=== PATIENT | male | born 1945 | race Caucasian/White ===

== ENCOUNTER → 2018-12-13 15:51 | Outpatient (CLI) | payer OTHER, SELFPAY ==
--- NOTE | 2018-12-13 | DI.MRI.S_ITS ---
PROCEDURE: MR LUMBAR SPINE WO CON INDICATIONS: Other intervertebral disc degeneration, lumbar reg TECHNIQUE: Noncontrast sagittal T1 spin echo and T2 fast echo, sagittal STIR, axial T1 and T2 fast spin echo through the lumbar spine. In cases with scoliosis, additional coronal T2 fast spin echo may be performed. COMPARISON: None. FINDINGS: Image quality: Excellent. Alignment and Curvature: Grade 1 retrolisthesis of L1 on L2 and L3 on L4. Grade 1 anterolisthesis of L5 on S1 Bone Marrow: No acute compression fracture. Multilevel degenerative endplate sclerosis and spurring. Diffuse facet arthropathy. Multiple scattered small Schmorl's nodes are seen. Spinal Cord: Conus medullaris terminates at the L1 level. Visualized cord demonstrates normal signal and size. Paraspinous Soft Tissues: No paravertebral masses. L1-L2: Broad-based posterior disc bulge and bilateral facet arthropathy. Mild central canal narrowing. Partial effacement of both lateral recesses with bilaterally symmetric appearance. Mild bilateral foraminal stenoses. L2-L3: Mild broad-based posterior disc bulge bilateral facet arthropathy. No central canal narrowing. Lateral recesses appear grossly patent. No foraminal stenosis L3-L4: Broad-based posterior disc bulge bilateral facet arthropathy. Dorsal epidural lipomatosis. Mild to moderate central canal narrowing. Partial effacement of both lateral recesses with bilaterally symmetric appearance. Moderate left foraminal stenosis with nerve root compression. Mild right foraminal narrowing L4-L5: Bilateral facet arthropathy. No definite central canal or lateral recess narrowing. Mild bilateral foraminal stenoses L5-S1: Broad-based posterior disc bulge bilateral facet arthropathy. No central canal narrowing. Lateral recesses appear grossly patent. Severe right foraminal stenosis with nerve root compression. Severe left foraminal stenosis with nerve root compression. IMPRESSION: Severe bilateral L5-S1 foraminal stenoses. Moderate left L3-L4 foraminal stenosis. No high-grade canal narrowing. Dictated by: Flako Salmeron M.D. on 12/13/2018 at 16:40 Approved by: Flako Salmeron M.D. on 12/13/2018 at 16:47
== END ==
PROVIDERS: PCP Family Medicine; Visit Provider Family Medicine
DX: M51.36 Other intervertebral disc degeneration, lumbar region (principal); M48.061 Spinal stenosis, lumbar region without neurogenic claudication; M48.07 Spinal stenosis, lumbosacral region
CPT/HCPCS: 72148

== ENCOUNTER 2019-04-20 13:56 | Emergency (ER) | payer OTHER, SELFPAY ==
[2019-04-20 14:13] VITALS: BP 191/96; PULSE 81; RESP 16; TEMP 36.2; O2SAT 99; BMI 26.7
--- NOTE | 2019-04-20 14:53 | ED_ITS ---
HPI - Dizziness General Chief Complaint: Dizziness Stated Complaint: high bp/htn/feels week Time Seen by Provider: 04/20/19 14:22 Source: patient Mode of arrival: Ambulatory Limitations: no limitations History of Present Illness HPI Narrative: Patient is a 74-year-old male with history of hypertension and essential tremor who presents with dizziness. He states that he took primidone for the 1st time last night he almost immediately started to feel a little off. She woke up this morning around 4:00 a.m. he felt lightheaded he has not passed out. He is noted to have elevated blood pressure. He states that he also has anxiety he takes his blood pressure at least 3 to 4 times a day he did take his blood pressure medication today already. He states that he does feel quite anxious. Is he denies any chest pain heart palpitation shortness of breath weakness numbness tingling MD complaint: lightheadedness History of similar episodes: No History of trauma: No Related Data Allergies Allergy/AdvReac Type Severity Reaction Status Date / Time cefprozil Allergy Verified 04/20/19 15:18 clarithromycin Allergy Verified 04/20/19 15:18 Penicillins Allergy Verified 04/20/19 15:18 sulfamethoxazole Allergy Verified 04/20/19 15:18 [From Bactrim] trimethoprim [From Bactrim] Allergy Verified 04/20/19 15:18 Review of Systems Review of Systems ROS Unobtainable: All systems reviewed & are unremarkable except as noted in HPI and below Constitutional Constitutional: Denies chills, Denies fever(s), Denies lethargy and Denies weakn ess Eyes Eyes: Denies change in vision, Denies eye discharge, Denies irritation and Denies loss of vision ENT Ears, Nose, Mouth, and Throat: Denies change in voice, Denies neck pain and Denies sore throat Cardiovascular Cardiovascular: Denies chest pain, Denies irregular heart rhythm, Reports lightheadedness, Denies palpitations, Denies dyspnea, Denies dyspnea on exertion and Denies orthopnea Respiratory Respiratory: Denies cough, Denies dyspnea, Denies dyspnea on exertion and Denies wheezing Gastrointestinal Gastrointestinal: Denies abdominal pain, Denies change in bowel habits, Denies diarrhea, Denies nausea and Denies vomiting Musculoskeletal Musculoskeletal: Denies neck pain Integumentary/Breasts Skin/Breast: Denies pruritus, Denies erythema, Denies rash and Denies wounds Neurologic Neurologic: Denies loss of vision and Denies weakness Endocrine Endocrine: Denies palpitations Allergic/Immunologic Allergic/Immunologic: Denies wheezing Patient History Medical History Essential tremor (Acute) Hypertension (Acute) Social History Smoking Status: Never smoker alcohol intake: current substance use type: marijuana alcohol intake frequency: holidays/special occasions only Alcohol type: wine Substance Use Type: marijuana Exam Initial Vital Signs Initial Vital Signs: Vital Signs Temperature 97.1 F L 04/20/19 14:13 Pulse Rate 81 04/20/19 14:13 Respiratory Rate 16 04/20/19 14:13 Blood Pressure 191/96 H 04/20/19 14:13 Pulse Oximetry 99 04/20/19 14:13 GENERAL: Well-appearing, well-nourished and in no acute distress. HEENT: Head atraumatic,EOMI, pupils reactive, face symmetric, moist mucous membranes CARDIOVASCULAR: Regular rate and rhythm without murmurs, rubs or gallops. RESPIRATORY: Breath sounds equal bilaterally, no wheezes rales or rhonchi. ABDOMEN: Soft, nontender. Normoactive bowel sounds all 4 quadrants. No guarding or rebound. : No CVA tenderness EXTREMITIES: Normal range of motion, no clubbing or edema. Neurovascularly intact NEUROLOGICAL: Alert and oriented x4.Normal gait and speech. Cranial nerves II through XII grossly intact. Investment Executive strength equal bilaterally SKIN: Warm, dry, no laceration, no petechiae, no rashes or lesions. Course Orders Ordered: ED Orders 04/20/19 15:23 Complete Blood Count AUTO DIFF Stat Comprehensive Metabolic Panel Stat Troponin I Stat Discontinued Medications Sodium Chloride (Normal Saline 0.9%) 1,000 mls @ 1,000 mls/hr IV CONT LAINA Last Infusion: 04/20/19 16:30 Dose: 0 mls/hr Documented by: MARIA GUADALUPE Admin: 04/20/19 15:27 Dose: 1,000 mls/hr Documented by: JUANPABLO Lorazepam (Ativan) 1 mg PO NOW ONE Stop: 04/20/19 14:44 Last Admin: 04/20/19 15:44 Dose: 1 mg Documented by: JUANPABLO Vital Signs Vital signs: Vital Signs - 8 hr 04/20/19 14:13 04/20/19 15:58 Temperature 97.1 F L Pulse Rate 81 70 Respiratory Rate 16 Blood Pressure 191/96 H Blood Pressure [Left Arm] 150/80 H Pulse Oximetry 99 99 MDM - Dizziness Lab Data Attestation: I reviewed the patient's lab results. Result diagrams: 04/20/19 15:23 04/20/19 15:23 Labs: Lab Results 04/20/19 04/20/19 Range/Units 15:23 15:23 WBC 5.4 (4.5-11.0) X10^3/uL RBC 4.16 L (4.5-5.9) X10^6/uL Hgb 14.0 (13.5-17.5) g/dL Hct 41.1 (41-53) % MCV 98.8 (80-100) fL MCH 33.7 (26-34) PG MCHC 34.1 (30-36) % RDW 13.1 (11.6-14.8) % Plt Count 172 (150-400) X10^3/uL Neut % (Auto) 68.9 (50-75) % Lymph % (Auto) 16.6 L (25-40) % [place] % (Auto) 11.1 (3-14) % Eos % (Auto) 2.6 (2-4) % Baso % (Auto) 0.8 (0-2) % Neut # (Auto) 3700 (6668-6390) /uL Lymph # (Auto) 900 L (9842-5271) /uL [place] # (Auto) 600 (0-900) /uL Eos # (Auto) 100 (0-450) /uL Baso # (Auto) 0 (0-100) /uL Sodium 137 (137-145) mmol/L Potassium 5.2 H (3.4-5.1) mmol/L Chloride 105 (98-107) mmol/L Carbon Dioxide 23 (22-32) mmol/L BUN 15 (9-20) mg/dL Creatinine 0.70 (0.66-1.25) mg/dL Estimated GFR > 60.0 (>60) mL/min BUN/Creatinine Ratio 21.4 (6-22) Glucose 114 H (80-110) mg/dL Calcium 8.9 (8.4-10.2) mg/dL Total Bilirubin 1.2 (0.2-1.3) mg/dL AST 34 (17-59) IU/L ALT 22 (<50) IU/L Alkaline Phosphatase 46 (38-126) U/L Troponin I < 0.012 (0.01-0.034) ng/mL Total Protein 6.7 (6.3-8.2) g/dL Albumin 4.1 (3.5-5.0) g/dL Globulin 2.6 (1.7-4.1) g/dL Albumin/Globulin Ratio 1.6 (1.0-2.8) Urine Dip Bedside Urine Glucose Negative Bedside Urine Bilirubin - Negative Bedside Urine Ketone - Negative Urine Specific [place] 1.005 Bedside Urine Occult Blood - Negative Bedside Urine pH 6.0 Bedside Urine Protein - Negative Bedside Urine Urobilinogen - Negative Bedside Urine Nitrite - Negative Bedside Urine Leukocytes - Negative Esterase ECG Data Attestation: I personally reviewed and interpreted this ECG as follows: Prior ECG tracings: not available for review Interpretation: Sinus rhythm rate [address] changes no T-wave inversions no priors to compare p.r. interval 144 QRS 85 QTC 411 MDM Narrative Medical decision making narrative: The patient likely had reaction from primidone can cause some vertigo. His blood pressure has come down who with At th[place] and he overall is feeling much better. At this time he can follow up outpatient and may need different medication for central tremors Discharge Plan Departure Patient Disposition: Home Clinical Impression: Adverse drug reaction Qualifiers: Encounter type: initial encounter Qualified Code(s): T50.905A - Adverse effect of unspecified drugs, medicaments and biological substances, initial encounter Hypertension Qualifiers: Hypertension type: essential hypertension Qualified Code(s): I10 - Essential (primary) hypertension Discharge Date/Time: 04/20/19 16:35 Instructions: DI for Adverse Drug Reaction -- Other Activity Restrictions/Additional Instructions: *You have been diagnosed with drug reaction *What to do: Possible drug reaction from primidone. I recommend following up with her PCP in regards to this medication however I would hold off taking it *Continue to take medications as directed *Follow up with your primary care provider in 2-3 days *Return to ER if you should have increasing dizziness lightheadedness worsening tremors persistent elevated blood pressure or any new, worsening or concerning symptoms Referrals: Steven Massey MD [Primary Care Provider] -
[2019-04-20] MEDS: SODIUM CHLORIDE 0.9% 1,000 ML 1000 ML IV (15:27)
[2019-04-20 15:33] LABS: Add Manual Diff / Slide Review NO; Basophils Absolute Auto 0 /uL (0-100); Basophils Percent Auto 0.8 % (0-2); Eosinophils Absolute Auto 100 /uL (0-450); Eosinophils Percent Auto 2.6 % (2-4); Hematocrit 41.1 % (41-53); Lymphocytes Absolute Auto 900 /uL (1100-4500); Lymphocytes Percent Auto 16.6 % (25-40); Mean Corpuscular HGB Conc 34.1 % (30-36); Mean Corpuscular Hemoglobin 33.7 PG (26-34); Mean Corpuscular Volume 98.8 fL (80-100); Monocytes Absolute Auto 600 /uL (0-900); Monocytes Percent Auto 11.1 % (3-14); Neutrophils Absolute Auto 3700 /uL (1500-7000); Neutrophils Percent Auto 68.9 % (50-75); Platelet Count 172 X10^3/uL (150-400); Red Blood Cell Count 4.16 X10^6/uL (4.5-5.9); Red Cell Distribution Width 13.1 % (11.6-14.8); White Blood Cell Count 5.4 X10^3/uL (4.5-11.0)
[2019-04-20] MEDS: LORazepam 0.5 MG TABLET 1 MG PO (15:44)
[2019-04-20 15:45] LABS: Alanine Aminotransferase 22 IU/L (<50); Albumin 4.1 g/dL (3.5-5.0); Albumin Globulin Ratio 1.6 (1.0-2.8); Alkaline Phosphatase 46 U/L (38-126); Aspartate Aminotransferase 34 IU/L (17-59); BUN Creatinine Ratio 21.4 (6-22); Bilirubin Total 1.2 mg/dL (0.2-1.3); Blood Urea Nitrogen 15 mg/dL (9-20); Calcium 8.9 mg/dL (8.4-10.2); Carbon Dioxide 23 mmol/L (22-32); Chloride 105 mmol/L (98-107); Estimated Glomerular Filt Rate > 60.0 mL/min (>60); Globulin 2.6 g/dL (1.7-4.1); Glucose 114 mg/dL (80-110); Sodium 137 mmol/L (137-145); Total Protein 6.7 g/dL (6.3-8.2)
[2019-04-20 15:46] LABS: HEMOLYSIS 133 (0-50)
[2019-04-20 15:47] LABS: Potassium 5.2 mmol/L (3.4-5.1)
[2019-04-20 15:56] LABS: Troponin I < 0.012 ng/mL (0.01-0.034)
[2019-04-20 15:58] VITALS: BP 150/80; PULSE 70; O2SAT 99
== END 2019-04-20 16:35 | disposition home or self-care (01) ==
PROVIDERS: Emergency Provider Emergency Medicine; PCP Family Medicine
DX: I10 Essential (primary) hypertension (principal); T50.905A Adverse effect of unspecified drugs, medicaments and biological substances, initial encounter
CPT/HCPCS: 36415; 80053; 81003; 84484; 85025; 93005; 96360; 99283; 99284

== ENCOUNTER 2019-10-24 10:11 | Emergency (ER) | payer MEDICARE, SELFPAY ==
[2019-10-24] VITALS (7 sets, daily range): BP systolic 138–186; BP diastolic 59–79; PULSE 50–92; RESP 14–20; TEMP 37.1; O2SAT 95–100
[2019-10-24 10:57] LABS: Lactate (Lactic Acid) 0.8 mmol/L (0.7-2.1)
[2019-10-24 10:59] LABS: Alanine Aminotransferase 16 IU/L (<50); Albumin 4.1 g/dL (3.5-5.0); Albumin Globulin Ratio 1.4 (1.0-2.8); Alkaline Phosphatase 64 U/L (38-126); Aspartate Aminotransferase 20 IU/L (17-59); BUN Creatinine Ratio 12.5 (6-22); Bilirubin Total 0.8 mg/dL (0.2-1.3); Blood Urea Nitrogen 12 mg/dL (9-20); Calcium 9.2 mg/dL (8.4-10.2); Carbon Dioxide 24 mmol/L (22-32); Chloride 107 mmol/L (98-107); Estimated Glomerular Filt Rate > 60.0 mL/min (>60); Glucose 145 mg/dL (80-110); HEMOLYSIS < 15 (0-50); Lipase 118 U/L (23-300); Potassium 3.9 mmol/L (3.4-5.1); Sodium 138 mmol/L (137-145); Total Protein 7.1 g/dL (6.3-8.2)
--- NOTE | 2019-10-24 11:41 | ED_ITS ---
HPI - Abdominal Pain <Stephanie Manzo PA-C - Last Filed: 10/24/19 22:33> General Chief Complaint: Abdominal Pain Stated Complaint: upset stomach,chills Time Seen by Provider: 10/24/19 10:54 Mode of arrival: Ambulatory History of Present Illness HPI narrative: This is a well-appearing 74-year-old nonsmoker with a history of hypertension, hyperlipidemia, essential tremor, multiple drug allergies who presents to the emergency department with 3 weeks of intermittent abdominal discomfort, reported intermittent chills and a few episodes of feeling like his hands and feet are tingly and numb--this occurs at least once a day. Shira had an episode a few days ago where he went for a walk and afterwards his legs felt funny on both sides. He has seen his PCP for the same complaints 2 times in the last 3 weeks and presents to the emergency department today because he felt he wants more answers. He reports that his discomfort does not seem to be affected by eating; he has been eating and drinking normally and has had no changes to his diet recently, with the exception that he has been cooking for himself since late fall as he recently got . He has not had increased stressors. He reports that the pain feels a little bit like reflux although he has never had a problem with this previously, he also says that sometimes it feels like there is a lead filled balloon in his belly in the upper right. He was prescribed ome prazole for 2 weeks and took this for a few days with limited relief. He also says that he had a stool sample checked and they found what was ?traveler's diarrhea? and prescribed antibiotics for this however he has allergy to a related medicine and he decided not to take it. He has not had any diarrhea in the last few months, reporting that he has about 3 formed bowel movements per day which is normal for him. He was taking Pepto-Bismol for a few weeks with limited relief. He also has had multiple episodes in the last few weeks where he feels like his homes get sweaty and they feel kind of tingly and this lasts for few minutes. This does not seem to be associated with any specific activ ity. He advises that he did not have any dark stool (except with the pepto bismol) and has not seen any red blood in his stool. He also advises he had a major sinus surgery in mid June and has had follow-up for this. Also advises 2 years ago he had a significant cardiac workup at [place] revealing a possible small vessel occlusion but was not advised he needed to follow-up for this. He takes propranolol for essential tremor, losartan for hypertension, and a statin daily. He also drinks 4-6 glasses of wine per day. He advises he has been tested for COVID-19 and has also had the antibody test done. He denies any current abdominal pain or discomfort, dysuria, constipation, diarrhea, nausea, vomiting, new back pain, palpitations, or any other symptoms. MD complaint: abdominal pain (discomfort) Onset (ago): week(s) (3) Pain Consistency: intermittent and now resolved Location: diffuse and RUQ Severity: mild Severity scale (1-10): 2 Quality: burning Radiation: none Migration to: no migration Relieving factors: nothing Exacerbating factors: nothing Associated symptoms: nausea (occasional) and chills Related Data Previous Rx's Medication Instructions Recorded ciprofloxacin HCl 500 mg PO BID #6 tab NS 10/24/19 Allergies Allergy/AdvReac Type Severity Reaction Status Date / Time cefprozil Allergy Verified 04/20/19 15:18 clarithromycin Allergy Verified 04/20/19 15:18 Penicillins Allergy Verified 04/20/19 15:18 sulfamethoxazole Allergy Verified 04/20/19 15:18 [From Bactrim] trimethoprim [From Bactrim] Allergy Verified 04/20/19 15:18 Review of Systems <Stephanie Manzo PA-C - Last Filed: 10/24/19 22:33> Review of Systems Narrative: See HPI GENERAL: Denies chills, fatigue, malaise, fever, sweats. HEENT: Denies sinus pain, ear pain, sore throat, difficulty swallowing, endorses occasional dizziness. RESPIRATORY: Denies dyspnea, cough, wheezing, hemoptysis, sputum. CARDIOVASCULAR: Denies chest pain, palpitations, orthopnea, edema, GASTROINTESTINAL: Denies nausea, vomiting, endorses abdominal discomfort, denies abdominal pain, diarrhea, constipation, melena, blood in stool. : Denies dysuria, frequency, incontinence, hematuria, urinary retention. MUSCULOSKELETAL: denies weakness except 1 episode of bilateral leg weakness that was brief 2 days ago, denies joint pain, or bony pain SKIN: Denies rash, skin lesions, or other NEUROLOGIC: Denies weakness, headache, change in speech, confusion, seizures, incoordination endorses intermittent numbness and tingling of his hands and feet for the last few weeks that is mild and comes and goes. PSYCHIATRIC: No concerning psychosocial issues. 12 point review of systems is negative except for those stated above Patient History <Stephanie Manzo PA-C - Last Filed: 10/24/19 22:33> Medical History Essential tremor (Acute) Hypertension (Acute) Social History Smoking Status: Never smoker alcohol intake: current substance use type: marijuana Smoking Status: Never smoker alcohol intake frequency: holidays/special occasions only Alcohol type: wine Substance Use Type: marijuana Exam <Stephanie Manzo PA-C - Last Filed: 10/24/19 22:33> Narrative Exam Narrative: GENERAL: 74 year old patient appears stated age. Well-nourished, well-developed patient, in mild distress. HEAD: Atraumatic. Normocephalic. EYES: Pupils equal round and reactive. Extraocular motions intact. No scleral icterus. No injection or drainage. ENT: Nose without bleeding, purulent drainage. Throat without erythema, tonsillar hypertrophy or exudate. Airway patent. NECK: Trachea midline. Non tender CARDIOVASCULAR: Regular rate and rhythm without murmurs, gallops, or rubs. RESPIRATORY: Clear to auscultation. Breath sounds equal bilaterally. No wheezes, rales, or rhonchi. GASTROINTESTINAL: Abdomen soft, non-tender, nondistended. EXTREMITIES: No edema or joint tenderness. BACK: Nontender without deformity or crepitance. No flank tenderness. NEURO: AOx3. Cranial nerves are intact, strength is intact upper and lower extremities 5/5, sensation is intact, coordination is intact. SKIN: No rash or erythema of visible areas Initial Vital Signs Initial Vital Signs: Vital Signs Temperature 98.7 F 10/24/19 10:15 Pulse Rate 59 L 10/24/19 10:15 Respiratory Rate 18 10/24/19 10:15 Blood Pressure 186/59 H 10/24/19 10:15 Pulse Oximetry 100 05/28/20 10:15 <Juan Ramirez MD - Last Filed: 10/25/19 07:53> Initial Vital Signs Initial Vital Signs: Vital Signs Temperature 98.7 F 10/24/19 10:15 Pulse Rate 59 L 10/24/19 10:15 Respiratory Rate 18 10/24/19 10:15 Blood Pressure 186/59 H 10/24/19 10:15 Pulse Oximetry 100 10/24/19 10:15 Course <Stephanie Manzo PA-C - Last Filed: 10/24/19 22:33> Course Course Narrative: Given that he currently has no active abdominal pain, and I cannot reproduce his discomfort or pain on exam I am not inclined to pursue imaging at this time, however I am somewhat concerned about his vague neurologic symptoms though I do not suspect CVA or TIA. He does have a chronic essential tremor and he is a frequent alcohol drinker so I am going to check some additional labs in case he may have deficiency here. The patient is disinclined to take many medicines if he does not absolutely have to, as evidenced by his not continuing EMS personal as prescribed. He does however have regular medicines he is adherent to consistently for hypertension etc. His blood pressure is slightly elevated today in the emergency department. Orders Ordered: ED Orders 10/24/19 10:35 Complete Blood Count AUTO DIFF Stat Comprehensive Metabolic Panel Stat Lactate (Lactic Acid) Stat Lipase Stat Partial Thromboplastin Time Stat Prothrombin Time INR Stat 10/24/19 10:40 EKG-12 Lead Stat 10/24/19 11:50 Folate Stat Thyroid Stimulating Hormone Stat Vitamin B12 Stat Vital Signs Vital signs: Vital Signs - 8 hr 10/24/19 14:36 10/24/19 15:00 Pulse Rate 54 L 51 L Respiratory Rate 19 19 Blood Pressure [Right Arm] 148/74 H 138/71 Pulse Oximetry 98 96 <Juan Ramirez MD - Last Filed: 10/25/19 07:53> Orders Ordered: ED Orders 10/24/19 10:35 Complete Blood Count AUTO DIFF Stat Comprehensive Metabolic Panel Stat Lactate (Lactic Acid) Stat Lipase Stat Partial Thromboplastin Time Stat Prothrombin Time INR Stat 10/24/19 10:40 EKG-12 Lead Stat 10/24/19 11:50 Folate Stat Thyroid Stimulating Hormone Stat Vitamin B12 Stat Vital Signs Vital signs: Vital Signs - 8 hr 10/24/19 14:36 10/24/19 15:00 Pulse Rate 54 L 51 L Respiratory Rate 19 19 Blood Pressure [Right Arm] 148/74 H 138/71 Pulse Oximetry 98 96 MDM - Abdominal Pain <Stephanie Manzo PA-C - Last Filed: 10/24/19 22:33> Differential Diagnosis Differential diagnosis: Likely abdominal pain (Hypothyroid, EAEC, GERD, alcoholism) Medical Records Attestation: I reviewed the patient's medical records. Lab Data Attestation: I reviewed the patient's lab results. Result diagrams: 10/24/19 10:35 10/24/19 10:35 Labs: Lab Results 10/24/19 10/24/19 10/24/19 Range/Units 10:35 10:35 10:35 WBC 5.2 (4.5-11.0) X10^3/uL RBC 4.14 L (4.5-5.9) X10^6/uL Hgb 14.0 (13.5-17.5) g/dL Hct 40.7 L (41-53) % MCV 98.4 (80-100) fL MCH 33.7 (26-34) PG MCHC 34.3 (30-36) % RDW 13.8 (11.6-14.8) % Plt Count 189 (150-400) X10^3/uL Neut % (Auto) 53.3 (50-75) % Lymph % (Auto) 22.5 L (25-40) % [place] % (Auto) 11.2 (3-14) % Eos % (Auto) 12.1 H (2-4) % Baso % (Auto) 0.9 (0-2) % Neut # (Auto) 2800 (8739-6262) /uL Lymph # (Auto) 1200 (6840-1931) /uL [place] # (Auto) 600 (0-900) /uL Eos # (Auto) 600 H (0-450) /uL Baso # (Auto) 0 (0-100) /uL PT 11.5 (10.1-12.7) SECONDS INR 1.0 (0.9-1.3) APTT 29 (26.4-36.2) SECONDS Sodium 138 (137-145) mmol/L Potassium 3.9 (3.4-5.1) mmol/L Chloride 107 (98-107) mmol/L Carbon Dioxide 24 (22-32) mmol/L BUN 12 (9-20) mg/dL Creatinine 0.96 (0.66-1.25) mg/dL Estimated GFR > 60.0 (>60) mL/min BUN/Creatinine Ratio 12.5 (6-22) Glucose 145 H (80-110) mg/dL Lactate (0.7-2.1) mmol/L Calcium 9.2 (8.4-10.2) mg/dL Total Bilirubin 0.8 (0.2-1.3) mg/dL AST 20 (17-59) IU/L ALT 16 (<50) IU/L Alkaline Phosphatase 64 (38-126) U/L Total Protein 7.1 (6.3-8.2) g/dL Albumin 4.1 (3.5-5.0) g/dL Globulin 3.0 (1.7-4.1) g/dL Albumin/Globulin Ratio 1.4 (1.0-2.8) Lipase 118 (23-300) U/L Vitamin B12 (239-931) pg/mL Folate (2.76-20.0) ng/mL TSH (0.47-4.68) uIU/mL 10/24/19 10/24/19 10/24/19 Range/Units 10:35 10:35 10:35 WBC (4.5-11.0) X10^3/uL RBC (4.5-5.9) X10^6/uL Hgb (13.5-17.5) g/dL Hct (41-53) % MCV (80-100) fL MCH (26-34) PG MCHC (30-36) % RDW (11.6-14.8) % Plt Count (150-400) X10^3/uL Neut % (Auto) (50-75) % Lymph % (Auto) (25-40) % [place] % (Auto) (3-14) % Eos % (Auto) (2-4) % Baso % (Auto) (0-2) % Neut # (Auto) (1612-2084) /uL Lymph # (Auto) (5286-5967) /uL [place] # (Auto) (0-900) /uL Eos # (Auto) (0-450) /uL Baso # (Auto) (0-100) /uL PT (10.1-12.7) SECONDS INR (0.9-1.3) APTT (26.4-36.2) SECONDS Sodium (137-145) mmol/L Potassium (3.4-5.1) mmol/L Chloride (98-107) mmol/L Carbon Dioxide (22-32) mmol/L BUN (9-20) mg/dL Creatinine (0.66-1.25) mg/dL Estimated GFR (>60) mL/min BUN/Creatinine Ratio (6-22) Glucose (80-110) mg/dL Lactate 0.8 (0.7-2.1) mmol/L Calcium (8.4-10.2) mg/dL Total Bilirubin (0.2-1.3) mg/dL AST (17-59) IU/L ALT (<50) IU/L Alkaline Phosphatase (38-126) U/L Total Protein (6.3-8.2) g/dL Albumin (3.5-5.0) g/dL Globulin (1.7-4.1) g/dL Albumin/Globulin Ratio (1.0-2.8) Lipase (23-300) U/L Vitamin B12 915 (239-931) pg/mL Folate 8.3 (2.76-20.0) ng/mL TSH 5.40 H (0.47-4.68) uIU/mL Point of care testing: Urine Dip Bedside Urine Glucose Negative Bedside Urine Bilirubin - Negative Bedside Urine Ketone - Negative Urine Specific Cardinal 1.015 Bedside Urine Occult Blood - Negative Bedside Urine pH 6.0 Bedside Urine Protein - Negative Bedside Urine Urobilinogen - Negative Bedside Urine Nitrite - Negative Bedside Urine Leukocytes - Negative Esterase ECG Data Attestation: I personally reviewed and interpreted this ECG as follows: Prior ECG tracings: not available for review (Sinus bradycardia, rate of 53 CO 130 QRSd of 80 QT 398 QTC 373 P axis 64 QRS 16 T 25) MDM Narrative Medical decision making narrative: This is a fairly well-appearing 74-year-old with a history of hypertension, hyperlipidemia, essential tremor, travel to [place] 2 months ago, who presents to the emergency department with varied/vague complaints including intermittent abdominal discomfort, numbness and tingling of his hands and feet, and a recent diagnosis of traveler's diarrhea for which he has not taken antibiotics. His exam was grossly unremarkable, and I have low concern for neurologic problems such as TIA or CVA. 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 He also did try omeprazole briefly with some minimal relief for his abdominal discomfort. I do not at this point suspect a gastric ulcer or GERD based on the description and timing of his symptoms. He was noted to have a mild eosinophilia as well as to be hypothyroid and he was advised to follow-up with his PCP regarding his hypothyroid and possibly rechecking this and may be initiating medication. He was provided with a prescription for Cipro for his E coli infection as this is not an antibiotic he has previously had any problem with. His EAEC may explain some of the vague abdominal discomfort he has been experiencing and I advised him to talk to his PCP again about this and he can start taking the antibiotics that were prescribed today. <Juan Ramirez MD - Last Filed: 10/25/19 07:53> Lab Data Labs: Lab Results 10/24/19 10/24/19 10/24/19 Range/Units 10:35 10:35 10:35 WBC 5.2 (4.5-11.0) X10^3/uL RBC 4.14 L (4.5-5.9) X10^6/uL Hgb 14.0 (13.5-17.5) g/dL Hct 40.7 L (41-53) % MCV 98.4 (80-100) fL MCH 33.7 (26-34) PG MCHC 34.3 (30-36) % RDW 13.8 (11.6-14.8) % Plt Count 189 (150-400) X10^3/uL Neut % (Auto) 53.3 (50-75) % Lymph % (Auto) 22.5 L (25-40) % [place] % (Auto) 11.2 (3-14) % Eos % (Auto) 12.1 H (2-4) % Baso % (Auto) 0.9 (0-2) % Neut # (Auto) 2800 (0013-7422) /uL Lymph # (Auto) 1200 (8015-3922) /uL [place] # (Auto) 600 (0-900) /uL Eos # (Auto) 600 H (0-450) /uL Baso # (Auto) 0 (0-100) /uL PT 11.5 (10.1-12.7) SECONDS INR 1.0 (0.9-1.3) APTT 29 (26.4-36.2) SECONDS Sodium 138 (137-145) mmol/L Potassium 3.9 (3.4-5.1) mmol/L Chloride 107 (98-107) mmol/L Carbon Dioxide 24 (22-32) mmol/L BUN 12 (9-20) mg/dL Creatinine 0.96 (0.66-1.25) mg/dL Estimated GFR > 60.0 (>60) mL/min BUN/Creatinine Ratio 12.5 (6-22) Glucose 145 H (80-110) mg/dL Lactate (0.7-2.1) mmol/L Calcium 9.2 (8.4-10.2) mg/dL Total Bilirubin 0.8 (0.2-1.3) mg/dL AST 20 (17-59) IU/L ALT 16 (<50) IU/L Alkaline Phosphatase 64 (38-126) U/L Total Protein 7.1 (6.3-8.2) g/dL Albumin 4.1 (3.5-5.0) g/dL Globulin 3.0 (1.7-4.1) g/dL Albumin/Globulin Ratio 1.4 (1.0-2.8) Lipase 118 (23-300) U/L Vitamin B12 (239-931) pg/mL Folate (2.76-20.0) ng/mL TSH (0.47-4.68) uIU/mL 10/24/19 10/24/19 10/24/19 Range/Units 10:35 10:35 10:35 WBC (4.5-11.0) X10^3/uL RBC (4.5-5.9) X10^6/uL Hgb (13.5-17.5) g/dL Hct (41-53) % MCV (80-100) fL MCH (26-34) PG MCHC (30-36) % RDW (11.6-14.8) % Plt Count (150-400) X10^3/uL Neut % (Auto) (50-75) % Lymph % (Auto) (25-40) % [place] % (Auto) (3-14) % Eos % (Auto) (2-4) % Baso % (Auto) (0-2) % Neut # (Auto) (9614-8111) /uL Lymph # (Auto) (3861-3438) /uL [place] # (Auto) (0-900) /uL Eos # (Auto) (0-450) /uL Baso # (Auto) (0-100) /uL PT (10.1-12.7) SECONDS INR (0.9-1.3) APTT (26.4-36.2) SECONDS Sodium (137-145) mmol/L Potassium (3.4-5.1) mmol/L Chloride (98-107) mmol/L Carbon Dioxide (22-32) mmol/L BUN (9-20) mg/dL Creatinine (0.66-1.25) mg/dL Estimated GFR (>60) mL/min BUN/Creatinine Ratio (6-22) Glucose (80-110) mg/dL Lactate 0.8 (0.7-2.1) mmol/L Calcium (8.4-10.2) mg/dL Total Bilirubin (0.2-1.3) mg/dL AST (17-59) IU/L ALT (<50) IU/L Alkaline Phosphatase (38-126) U/L Total Protein (6.3-8.2) g/dL Albumin (3.5-5.0) g/dL Globulin (1.7-4.1) g/dL Albumin/Globulin Ratio (1.0-2.8) Lipase (23-300) U/L Vitamin B12 915 (239-931) pg/mL Folate 8.3 (2.76-20.0) ng/mL TSH 5.40 H (0.47-4.68) uIU/mL Point of care testing: Urine Dip Bedside Urine Glucose Negative Bedside Urine Bilirubin - Negative Bedside Urine Ketone - Negative Urine Specific Cardinal 1.015 Bedside Urine Occult Blood - Negative Bedside Urine pH 6.0 Bedside Urine Protein - Negative Bedside Urine Urobilinogen - Negative Bedside Urine Nitrite - Negative Bedside Urine Leukocytes - Negative Esterase Discharge Plan Departure Patient Disposition: Home Clinical Impression: Essential tremor Hypothyroid Qualifiers: Hypothyroidism type: unspecified Qualified Code(s): E03.9 - Hypothyroidism, unspecified Hypertension Qualifiers: Hypertension type: unspecified Qualified Code(s): I10 - Essential (primary) hypertension Abdominal pain Qualifiers: Abdominal location: generalized Qualified Code(s): R10.84 - Generalized abdominal pain Discharge Date/Time: 10/24/19 15:47 Instructions: DI for Bacterial Gastroenteritis -- Adult, DI for Hypothyroidism Activity Restrictions/Additional Instructions: Thank you for letting us to be part of your care in the emergency department to day. There is no evidence of an emergent or life threatening illness at this time, but follow up with your doctor in 1-2 days is recommended nonetheless to continue to rule out serious underlying causes of your symptoms. Please call the office for an appointment. Please return to the Emergency Department for any worsening or persistent symptoms. Please take medications as directed. Most of your labs looked good, and he were not actively having abdominal pain so we did not pursue any imaging, however your Eosinphil count was slightly elevated and I recommend that you have this rechecked by your PCP office within the next 4-6 weeks. You also appear to be hypothyroid and I recommend that you follow-up with your primary care regarding this, they may want to recheck this lab, and they may consider prescribing the medication depending on the results. Based on what you said about the [facility] see that was found with your recent stool sample, an alternative antibiotic that should work for this is ciprofloxacin and I have prescribed this for you the dose is 500 mg twice a day for 3 days this should clear up the infection. Your B6 and B12 were in the normal range. It is unclear exactly what is causing your neurologic symptoms and your abdominal discomfort, however it is possible that your hypothyroid or the infection from that E. Coli are part of the picture. I recommend you follow-up on both of these with your primary care physician. You can take the Cipro Floxacin as prescribed however because you have not been symptomatic with severe diarrhea is not absolutely necessary to take antibiotics. Though it may improve your symptoms and your abdominal discomfort if you do. I recommend while your taking antibiotics that you also take probiotics or eat yogurt. If you develop any fever, nausea, vomiting, diarrhea, worsening abdominal pain or any other symptoms of concern to you please seek medical care return to the emergency department. Prescriptions: New ciprofloxacin HCl 500 mg tablet 500 mg PO BID Qty: 6 RF: 0 Referrals: Steven Massey MD [Primary Care Provider] -
[2019-10-24 12:52] LABS: Add Manual Diff / Slide Review NO; Basophils Absolute Auto 0 /uL (0-100); Basophils Percent Auto 0.9 % (0-2); Eosinophils Absolute Auto 600 /uL (0-450); Eosinophils Percent Auto 12.1 % (2-4); Hematocrit 40.7 % (41-53); Lymphocytes Absolute Auto 1200 /uL (1100-4500); Lymphocytes Percent Auto 22.5 % (25-40); Mean Corpuscular HGB Conc 34.3 % (30-36); Mean Corpuscular Hemoglobin 33.7 PG (26-34); Mean Corpuscular Volume 98.4 fL (80-100); Monocytes Absolute Auto 600 /uL (0-900); Monocytes Percent Auto 11.2 % (3-14); Neutrophils Absolute Auto 2800 /uL (1500-7000); Neutrophils Percent Auto 53.3 % (50-75); Platelet Count 189 X10^3/uL (150-400); Red Blood Cell Count 4.14 X10^6/uL (4.5-5.9); Red Cell Distribution Width 13.8 % (11.6-14.8); White Blood Cell Count 5.2 X10^3/uL (4.5-11.0)
[2019-10-24 13:02] LABS: Prothrombin Time 11.5 SECONDS (10.1-12.7)
[2019-10-24 13:04] LABS: PTT Partial Thromboplastin Tim 29 SECONDS (26.4-36.2)
[2019-10-24 14:45] LABS: Folate 8.3 ng/mL (2.76-20.0); Vitamin B12 915 pg/mL (239-931)
[2019-10-28 08:39] LABS: Vitamin B1 109.6 nmol/L (66.5-200.0)
== END 2019-10-24 15:47 | disposition home or self-care (01) ==
PROVIDERS: Emergency Medicine; Emergency Provider Student in an Organized Health Care Education/Training Program; PCP Family Medicine
DX: G25.0 Essential tremor (principal); E03.9 Hypothyroidism, unspecified; R10.84 Generalized abdominal pain; I10 Essential (primary) hypertension; E78.5 Hyperlipidemia, unspecified; R20.2 Paresthesia of skin
CPT/HCPCS: 36415; 80053; 81003; 82607; 82746; 83605; 83690; 84425; 84443; 85025; 85610; 85730; 93005; 93010; 99284

== ENCOUNTER → 2020-08-06 14:49 | Outpatient (CLI) | payer MEDICARE, SELFPAY ==
[2020-08-06] MEDS: COVID-19 VACC, Ad26(JANSSEN)/PF 0.5 ML IM (15:03)
== END ==
PROVIDERS: PCP Family Medicine; Visit Provider Internal Medicine
DX: Z23 Encounter for immunization (principal)
CPT/HCPCS: 0031A; 91303

== ENCOUNTER → 2021-11-22 12:26 | Outpatient (CLI) | payer MEDICARE, SELFPAY ==
--- NOTE | 2021-11-22 | DI.CT.S_ITS ---
PROCEDURE: CT SINUS SCREEN WO CON INDICATIONS: Chronic sinusitis, unspecified TECHNIQUE: Noncontrast 3.0 mm axial images acquired from the frontal sinuses to the mid-sella, with coronal and sagittal reformats. For radiation dose reduction, the following was used: automated exposure control, adjustment of mA and/or kV according to patient size. COMPARISON: None. FINDINGS: Image quality: Excellent. Postsurgical changes compatible with prior functional endoscopic sinus surgery. Mild mucosal thickening noted in the maxillary sinuses bilaterally, the sphenoid sinuses bilaterally, scattered throughout the anterior ethmoid air cells and in the frontal sinuses bilaterally. No air-fluid levels are identified. No osseous thickening, osseous remodeling or osseous erosive changes. Mild atherosclerotic calcification noted in the cavernous segments of the internal carotid arteries bilaterally. IMPRESSION: Prior functional endoscopic sinus surgery. Mild chronic pansinusitis. Dictated by: Edie Smith MD, PhD on 11/22/2021 at 14:36 Approved by: Edie Smith MD, PhD on 11/22/2021 at 14:41
== END ==
PROVIDERS: PCP Family Medicine; Referring Provider Family Medicine; Visit Provider Family Medicine
DX: J32.4 Chronic pansinusitis
CPT/HCPCS: 70486

== ENCOUNTER → 2022-01-02 14:02 | Outpatient (CLI) | payer MEDICARE, SELFPAY ==
--- NOTE | 2022-01-02 14:05 | DI.MRI.S_ITS ---
PROCEDURE: MR FOOT RT WO CON INDICATIONS: Pain in right foot TECHNIQUE: Noncontrast sagittal T1 spin echo and T2 fast spin echo with fat saturation, long-axis T1 spin echo and T2 fast spin echo with fat saturation, short-axis T1 spin echo and T2 fast spin echo with fat saturation through the forefoot. COMPARISON: [facility] ([facility]), CR, XR FOOT RT MIN 3V, 09/20/2021, 14:00. FINDINGS: Image quality: Excellent. Bones and joints: No bone marrow contusions or metatarsal stress fractures. Moderate to severe 1st MTP joint osteoarthritic changes are seen with significant joint space narrowing, subchondral sclerosis and edema and marginal osteophyte formation concerning for hallux limitus. Moderate to severe osteoarthritic changes also seen involving articulation between sesamoids and 1st metatarsal head with joint space narrowing and marginal osteophyte formation. Mild osteoarthritic changes are noted in rest of the midfoot and forefoot joints with joint space narrowing and mild subchondral sclerosis. No suspicious intraosseous lesion. Soft tissues: There is suggestion of partial-thickness tear involving plantar foot muscles near 1st and 2nd TMT joints. Visualized flexor and extensor tendons appear intact, without tenosynovitis. The distal insertions of the peroneus brevis and longus tendons appear intact. The principal Lisfranc ligament appears intact. No soft tissue ganglion cysts or bursal fluid collections. Sagittal images demonstrate signal abnormality involving capsuloligamentous structure of 1st MTP joint near their distal attachment suggestive of partial-thickness tear. IMPRESSION: 1. 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 2. Moderate to severe osteoarthritic changes involving articulation between 1st metatarsal head and sesamoids with partial thickness tear involving capsuloligamentous structure of 1st MTP joint near their distal insertion concerning for grade 2 turf toe injury. 3. Suggestion of muscle strain/low-grade partial-thickness tear involving medial aspect of plantar foot muscles near TMT joints. No other muscle or tendon signal abnormalities are seen. Dictated by: Alessandro Pleietz M.D. on 01/03/2022 at 9:46 Approved by: Alessadnro Pleitez M.D. on 01/03/2022 at 9:56
== END ==
PROVIDERS: PCP Family Medicine; Referring Provider Family Medicine; Visit Provider Family Medicine
DX: M19.071 Primary osteoarthritis, right ankle and foot (principal); S93.691A Other sprain of right foot, initial encounter; M79.671 Pain in right foot
CPT/HCPCS: 73718

== ENCOUNTER → 2022-01-07 11:47 | Outpatient (CLI) | payer MEDICARE, SELFPAY ==
--- NOTE | 2022-01-07 | DI.MRI.S_ITS ---
PROCEDURE: MR ANKLE RT WO CON INDICATIONS: PAIN IN RIGHT HEEL AND FOOT TECHNIQUE: Noncontrast sagittal T1 spin echo and T2 fast spin echo with fat saturation, axial proton density fast spin echo and T2 fast spin echo with fat saturation, coronal T1 spin echo and T2 fast spin echo with fat saturation through the ankle/hindfoot. COMPARISON: [facility] ([place]), CR, XR FOOT RT MIN 3V, 09/20/2021, 14:00. [facility], MR, MR FOOT RT WO CON, 01/02/2022, 14:36. FINDINGS: Image quality: Excellent. Bones and joints: No bone marrow contusions or fractures. No hindfoot coalitions. No osteochondral injuries of the talar dome there is mild degenerative spurring of the dorsal aspect of the talonavicular joint. Nonspecific subcutaneous edema is seen surrounding the ankle and at the dorsum of the foot. Medial structures: The deep and superficial layers of the deltoid ligament appear intact. The spring ligament components are intact. Mild posterior tibialis tenosynovitis. The flexor digitorum longus and flexor hallucis longus tendons are intact. The posterior tibial neurovascular bundle appears normal within the tarsal tunnel, without extrinsic mass effect. Lateral structures: The anterior talofibular ligament is mildly indistinct, most likely secondary to a remote prior sprain. The calcaneofibular and posterior talofibular ligaments appear intact. The anterior and posterior tibiofibular ligaments appear intact. The mild tendinosis and trace tenosynovitis of the peroneus brevis and longus tendons. A cyst is seen arising from the lateral sinus tarsi extending superiorly towards the extensor retinaculum measuring approximately 1.9 x 1.1 x 0.8 cm. Anterior structures: The tibialis anterior, extensor hallucis longus, and extensor digitorum longus tendons appear intact. The dorsal talonavicular ligament appears intact. Posterior and plantar structures: Achilles tendon is intact. Fluid signal intensity is seen within the proximal plantar fascia adjacent to its calcaneal attachment that is consistent with partial tearing. The tear measures approximately 7 mm in transverse dimension. Findings are superimposed on chronic fascial thickening. There is surrounding soft tissue and osseous edema. A small plantar calcaneal enthesophyte is present. No calcaneal fracture is seen. No abductor digiti quinti muscle atrophy to suggest Santos neuropathy. IMPRESSION: 1. Partial tearing of the proximal plantar fascia with surrounding soft tissue and osseous edema superimposed on chronic fasciopathy. Small edematous plantar calcaneal enthesophyte is seen. No acute calcaneal fracture. 2. Mild peroneus brevis and longus tenosynovitis. 3. Chronic low-grade sprain of the anterior talofibular ligament. 4. Mild posterior tibialis tenosynovitis. 5. Small ganglion cyst arising from the lateral sinus tarsi. Dictated by: Sae Ramey M.D. on 01/07/2022 at 13:40 Approved by: Sae Ramey M.D. on 01/07/2022 at 13:55
== END ==
PROVIDERS: PCP Family Medicine; Referring Provider Family Medicine; Visit Provider Family Medicine
DX: S96.811A Strain of other specified muscles and tendons at ankle and foot level, right foot, initial encounter (principal); S93.491A Sprain of other ligament of right ankle, initial encounter; M67.471 Ganglion, right ankle and foot; M65.871 Other synovitis and tenosynovitis, right ankle and foot; M79.671 Pain in right foot
CPT/HCPCS: 73721

== ENCOUNTER → 2022-02-08 15:02 | Outpatient (CLI) | payer MEDICARE, SELFPAY ==
--- NOTE | 2022-02-08 15:04 | DI.MRI.S_ITS ---
PROCEDURE: MR HEAD/BRAIN WO/W CON INDICATIONS: New daily persistent headache (NDPH) TECHNIQUE: Noncontrast axial T1 spin echo, axial T2 fast spin echo, sagittal and axial FLAIR, coronal T2 fast spin echo, axial gradient echo, axial diffusion and ADC through the brain. After the administration of contrast, axial and coronal and sagittal T1 spin echo with fat saturation through the brain. COMPARISON: [facility], CT, CT SINUS SCREEN WO CON, 11/22/2021, 12:33. [facility], MR, BRAIN W&WO CONTRAST, 04/03/2017, 17:44. FINDINGS: Image quality: Excellent. CSF spaces: Basal cisterns are patent. No extra-axial fluid collections. Ventricles are normal in size and shape. Brain: No midline shift. No intracranial bleeds or masses. No abnormal intracranial enhancement. There is cerebral volume loss for age. There is periventricular white matter chronic small vessel ischemic change. The brainstem appears normal. Diffusion-weighted images demonstrate no acute ischemic insults. No chronic ischemic insults. Normal intravascular flow voids are present. Skull and face: Calvarial marrow is normal in signal. Orbits appear normal. A skin lesion is seen posteriorly and on the right, measuring 2 cm, as on series 6 the image 15. This has grown compared to 2017. There is apparent mild enhancement seen. Sinuses: Mild mucosal thickening is seen within the paranasal sinuses. There is at least moderate bilateral mastoid air cell fluid seen. IMPRESSION: No significant intracranial abnormality is seen. No masses or abnormal enhancement can be seen. Paranasal sinus disease and mastoid air cell fluid noted. There is a 2 cm skin lesion seen posteriorly, with mild enhancement. This has grown compared to 2017. Please correlate with known patient history and physical examination findings. Dictated by: Anthony Donis M.D. on 02/08/2022 at 15:51 Approved by: Anthony Donis M.D. on 02/08/2022 at 15:53
== END ==
PROVIDERS: PCP Family Medicine; Referring Provider Family Medicine; Visit Provider Family Medicine
DX: G44.52 New daily persistent headache (NDPH) (principal); R42 Dizziness and giddiness; L98.9 Disorder of the skin and subcutaneous tissue, unspecified
CPT/HCPCS: 70553

== ENCOUNTER → 2023-04-11 12:52 | Outpatient (CLI) | payer MEDICARE, SELFPAY ==
--- NOTE | 2023-04-11 | DI.CT.S_ITS ---
PROCEDURE: CT HEAD/BRAIN WO CON INDICATIONS: Headache, unspecified TECHNIQUE: Noncontrast 4.5 mm thick angled axial sections acquired from the foramen magnum to the vertex, with coronal and sagittal reformats. For radiation dose reduction, the following was used: automated exposure control, adjustment of mA and/or kV according to patient size. COMPARISON: [facility], CT, CT SINUS SCREEN WO CON, 11/22/2021, 12:33. [facility], MR, BRAIN W&WO CONTRAST, 04/03/2017, 17:44. [facility], MR, MR HEAD/BRAIN WO/W CON, 02/08/2022, 15:31. FINDINGS: Image quality: Excellent. CSF spaces: Basal cisterns are patent. No extra-axial fluid collections. The ventricles are symmetric in size and shape. Brain: No intracranial bleeds or masses. There is cerebral volume loss for age, with resultant ventricular and sulcal prominence. There are periventricular and deep white matter chronic small vessel ischemic changes. There is intracranial internal carotid artery atherosclerosis. Skull and face: Calvarium and visualized facial bones appear intact, without suspicious lesions. The previously seen right posterior scalp lesion has been removed. Sinuses: Visualized sinuses and mastoids are clear. IMPRESSION: No acute intracranial hemorrhage is seen. No acute intracranial process is seen. Dictated by: Anthony Donis M.D. on 04/11/2023 at 12:44 Approved by: Anthony Donis M.D. on 04/11/2023 at 12:48
== END ==
PROVIDERS: PCP Family Medicine; Referring Provider Family Medicine; Visit Provider Family Medicine
DX: R51.9 Headache, unspecified (principal)
CPT/HCPCS: 70450

== ENCOUNTER → 2025-02-04 14:09 | Outpatient (CLI) | payer MEDICARE, SELFPAY ==
--- NOTE | 2025-02-04 14:12 | DI.CT.S_ITS ---
PROCEDURE: CT HEAD/BRAIN WO CON INDICATIONS: PRE OP IMAGING TECHNIQUE: Noncontrast 4.5 mm thick angled axial sections acquired from the foramen magnum to the vertex, with coronal and sagittal reformats. For radiation dose reduction, the following was used: automated exposure control, adjustment of mA and/or kV according to patient size. COMPARISON: [facility], CT, CT HEAD/BRAIN WO CON, 04/11/2023, 13:09. FINDINGS: Image quality: Diagnostic. CSF spaces: Basal cisterns are patent. No extra-axial fluid collections. The ventricles are symmetric in size and shape. Brain: No intracranial bleeds or mass effect. There is cerebral volume loss, with resultant ventricular and sulcal prominence. There are periventricular and deep white matter chronic small vessel ischemic changes. There is intracranial internal carotid artery atherosclerosis. Skull and face: Calvarium and visualized facial bones appear intact, without suspicious lesions. Sinuses: Visualized sinuses and mastoids are clear. IMPRESSION: No acute intracranial pathology. Dictated by: Marco Antonio Conti M.D. on 02/04/2025 at 15:54 Approved by: Marco Antonio Conti M.D. on 02/04/2025 at 15:55
== END ==
LOC: CT 14:12
PROVIDERS: PCP Family Medicine; Referring Provider Neurological Surgery; Visit Provider Neurological Surgery
DX: Z01.818 Encounter for other preprocedural examination (principal); R25.1 Tremor, unspecified
CPT/HCPCS: 70450